=== PATIENT | female | born 2000 | race African-American/Black ===

== ENCOUNTER 2022-06-23 01:37 | Inpatient (IN) | payer OTHER ==
[~2022-06-23] VITALS: Ht 185.4 cm; Wt 84.1 kg
[~2022-06-23 01:37] MED LIST: NO MEDICATIONS
[2022-06-23 02:38] LABS: BASOPHILS % (AUTO) 0.6 % (0.0-2.0); EOSINOPHILS % (AUTO) 3.6 % (1.0-6.0); HEMATOCRIT 38.7 % (36-46); HEMOGLOBIN 12.8 g/dL (12.0-16.0); LYMPHOCYTES # (AUTO) 2.5 K/uL (1.0-4.8); LYMPHOCYTES % (AUTO) 35.6 % (22.0-44.0); MEAN CORPUSCULAR HGB CONC 33.2 G/dL (31.0-37.0); MEAN CORPUSCULAR VOLUME 94 fL (80-100); MONOCYTES # (AUTO) 0.6 K/uL (0.1-1.0); MONOCYTES % (AUTO) 8.8 % (2.0-9.0); NEUTROPHILS # (AUTO) 3.7 K/uL (1.8-7.7); NEUTROPHILS % (AUTO) 51.4 % (40.0-70.0); PLATELET COUNT (AUTO) 159 K/uL (150-450); RED BLOOD CELL COUNT(AUTO) 4.14 MIL/uL (4.00-5.20); RED CELL DISTRIBUTION WIDTH 12.9 % (11.5-14.5)
[2022-06-23 02:48] LABS: ANION GAP 6 mmol/L (8-16); CALCIUM, TOTAL 8.9 mg/dL (8.8-10.5); CARBON DIOXIDE 29 mmol/L (22-29); CHLORIDE 104 mmol/L (98-107); GLUCOSE,RANDOM 95 mg/dL (70-110); POTASSIUM 3.7 mmol/L (3.5-5.1); SODIUM SERUM 139 mmol/L (136-145); UREA NITROGEN, BLOOD 10 mg/dL (7-18)
[2022-06-23 02:53] LABS: ALANINE AMINOTRANSFERASE 16 U/L (12-78); ALBUMIN 3.4 g/dL (3.4-5.0); ALKALINE PHOSPHATASE 62 U/L (46-116); ASPARTATE AMINOTRANSFERASE 15 U/L (15-37); BILIRUBIN,TOTAL 0.2 mg/dL (0.1-1.0); GLOMERULAR FILTR. RATE CALC > 60 mL/min (>60); TOTAL PROTEIN, SERUM 6.7 g/dL (6.4-8.2)
[2022-06-23] MEDS ORDERED: ONDANSETRON HCL 4 MG/2 ML VIAL IVP PRN ×2 (03:15→04:00)
[2022-06-23] MEDS ORDERED: ACETAMINOPHEN 325 MG TABLET PO PRN ×2 (03:15→04:00)
[2022-06-23 04:04] LABS: COVID AG,FIA SOURCE NASOPHARYNGEAL
[2022-06-23] MEDS ORDERED: FLUO20CA36 PO (04:31)
[2022-06-23] MEDS ORDERED: PRAZ1 PO (04:31)
[2022-06-23] MEDS ORDERED: BUSP10TA23 PO (04:31)
[2022-06-23] MEDS ORDERED: HYDR-4808 PO (04:34)
[2022-06-23] MEDS ORDERED: HYDR50CA7 PO (04:34)
[2022-06-23] MEDS ORDERED: QUET25TA PO (04:34)
[2022-06-23 07:42] LABS: AMPHET/METH SCREEN,URINE NEGATIVE (NEGATIVE); BARBITURATE SCREEN, URINE NEGATIVE (NEGATIVE); BENZODIAZEPINES SCREEN,URINE NEGATIVE (NEGATIVE); CANNABINOID SCREEN,URINE POSITIVE (NEGATIVE); COCAINE SCREEN,URINE NEGATIVE (NEGATIVE); METHADONE SCREEN, URINE NEGATIVE (NEGATIVE); OPIATE SCREEN,URINE NEGATIVE (NEGATIVE)
[2022-06-23 07:43] LABS: PHENCYCLIDINE SCREEN,URINE NEGATIVE (NEGATIVE)
[2022-06-23] MEDS: HEPARIN SODIUM,PORCINE 5,000 UNITS/ML VIAL SQ SCH ×3 (08:00→23:24)
[2022-06-23] MEDS ORDERED: FLUoxetine HCL 20 MG CAPSULE PO ONE (14:00)
[2022-06-23] MEDS: LORazepam 1 MG TABLET PO PRN (15:13)
[2022-06-23] MEDS: HydrOXYzine PAMOATE 25 MG CAPSULE PO SCH (15:13)
[2022-06-23] MEDS: BusPIRone HCL 10 MG TABLET PO SCH ×2 (16:32→21:28)
[2022-06-23] MEDS ORDERED: QUEtiapine FUMARATE 25 MG TABLET PO SCH (21:00)
[2022-06-23] MEDS ORDERED: HydrOXYzine PAMOATE 50 MG CAPSULE PO SCH (21:00)
[2022-06-23] MEDS ORDERED: PRAZOSIN HCL 1 MG CAPSULE PO SCH (21:00)
[2022-06-24] MEDS: HEPARIN SODIUM,PORCINE 5,000 UNITS/ML VIAL SQ SCH (07:07)
[2022-06-24] MEDS: LORazepam 1 MG TABLET PO PRN (07:43)
[2022-06-24] MEDS ORDERED: FLUoxetine HCL 20 MG CAPSULE PO SCH (09:00)
[2022-06-24 10:17] VITALS: BP 104/75
[2022-06-24] MEDS: BusPIRone HCL 10 MG TABLET PO SCH ×2 (11:00→16:54)
[2022-06-24] MEDS: HydrOXYzine PAMOATE 25 MG CAPSULE PO SCH ×2 (12:00→16:54)
[2022-06-24 15:50] VITALS: BP 113/66
[2022-06-24 20:00] VITALS: BP 105/65
== END 2022-06-24 21:50 | disposition left against medical advice (07) | DRG 137 ==
LOC: EMS 01:37 → 6S 06-24 06:38
PROVIDERS: ADMIT Internal Medicine; ATTEND Internal Medicine
DX: U07.1 COVID-19 (principal); F25.1 Schizoaffective disorder, depressive type; F12.10 Cannabis abuse, uncomplicated; F43.12 Post-traumatic stress disorder, chronic; F41.9 Anxiety disorder, unspecified
CPT/HCPCS: 80053; 85025; 99285; G0480; J1644